=== PATIENT | male | born 1950 | race Caucasian/White ===

== ENCOUNTER 2019-01-08 15:20 | Emergency (ER) | payer MEDICARE, MEDICAID ==
[~2019-01-08] VITALS: Ht 188 cm; Wt 122.5 kg
--- OUTSIDE RECORDS SUMMARY | 2019-01-08 15:25 | XMS REPORT | Continuity of Care Document ---
Author Author [facility] Organization [facility] Address Unknown Phone Unavailable Allergies Active Description Code Type Severity Reaction Onset Reported/Identified Relationship to Patient Clinical Status Yes IVP DYES MILD OTHER Yes NO KNOWN DRUG ALLERGIES UNKNOWN NO KNOWN DRUG ALLERG Medications Medication Packaging Start Date Stop Date Route Dosage Sig DEXAMETHASONE VIAL INJ 4 MG/CC (DECADRON VIAL) MG 09/04/2018 09/04/2018 ONCE&2044 BACLOFEN TAB 10 MG (LIORESAL) MG 09/04/2018 ONCE&2044 Methylprednisolone inj susp 80mg (DEPO-Medrol) MG 09/04/2018 09/04/2018 ONCE&2044 TRAMADOL PAIN PACK TAB 50 MG (ULTRAM PAIN PACK) MG 09/04/2018 09/04/2018 ONCE&2130 Problems Date Dx Coded Attending Type Code Diagnosis Diagnosed By 05/03/2014 STU AL MD Ot 327.23 05/03/2014 STU AL MD Ot 799.02 07/07/2017 Nayely Humphrey 729.1 MYALGIA AND MYOSITIS, UNSPECIFIED 07/07/2017 Nayely Humphrey M79.1 MYALGIA 07/07/2017 Nayely Humphrey 715.94 OSTEOARTHROSIS, UNSPECIFIED WHETHER GENERALIZED OR LOCALIZED, INVOLVING HAND 07/07/2017 Nayely Humphrey 729.1 MYALGIA AND MYOSITIS, UNSPECIFIED 07/07/2017 Nayely Humphrey M19.049 PRIMARY OSTEOARTHRITIS, UNSPECIFIED HAND 07/07/2017 Nayely Humphrey M79.1 MYALGIA 07/07/2017 Nayely Humphrey 715.94 OSTEOARTHROSIS, UNSPECIFIED WHETHER GENERALIZED OR LOCALIZED, INVOLVING HAND 07/07/2017 Nayely Humphrey 729.1 MYALGIA AND MYOSITIS, UNSPECIFIED 07/07/2017 Nayely Humphrey M19.049 PRIMARY OSTEOARTHRITIS, UNSPECIFIED HAND 07/07/2017 Kam, Nayely W M79.1 MYALGIA 09/02/2018 Kam, Nayely W 724.2 LUMBAGO 09/02/2018 Kam, Nayely W M54.5 LOW BACK PAIN 09/02/2018 Kam, Nayely W 724.2 LUMBAGO 09/02/2018 Kam, Nayely W M54.5 LOW BACK PAIN 09/04/2018 BaldwinAbigail A A 724.6 DISORDERS OF SACRUM 09/04/2018 Denny Abigail A A M53.2X8 SPINAL INSTABILITIES, SACRAL AND SACROCOCCYGEAL REGION 09/06/2018 [facility], Nayely W 724.2 LUMBAGO 09/06/2018 Kam, Nayely W M54.5 LOW BACK PAIN 09/06/2018 Kam, Nayely W 724.2 LUMBAGO 09/06/2018 Kam, Nayely W M54.5 LOW BACK PAIN 10/26/2018 STORM CHRIS W 250.00 DIABETES MELLITUS WITHOUT MENTION OF COMPLICATION, TYPE II OR UNSPECIFIED TYPE, NOT STATED UNCONTROLLED 10/26/2018 STORM CHRIS W E11.9 TYPE 2 DIABETES MELLITUS WITHOUT COMPLICATIONS 11/16/2018 [facility], Nayely W 274.10 GOUTY NEPHROPATHY, UNSPECIFIED 11/16/2018 Kam, Nayely W 585.9 CHRONIC KIDNEY DISEASE, UNSPECIFIED 11/16/2018 Kam, Nayely W 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 Results Test Result Range Uric Acid - 07/07/17 15:11 Uric Acid 8.1 mg/dL 2.6-7.2 BMP - 05/15/18 16:10 Anion Gap 19 6-14 BUN 33 mg/dL 5-25 Calcium 9.7 mg/dL 8.3-10.4 Chloride 101 mmol/L 95-114 CO2 23 mEq/L 22-33 Creat 1.75 mg/dL 0.50-1.50 eGFR 39 mL/min/1.73m2 >59 Glucose 134 mg/dL 70-110 Osmo 296 280-295 Potassium 4.0 mmol/L 3.5-5.3 Sodium 139 mmol/L 134-148 Uric Acid - 11/16/18 15:44 Uric Acid 7.3 mg/dL 2.6-7.2 Encounters ACCT No. Visit Date/Time Discharge Status Pt. Type Provider Facility Loc./Unit Complaint [id number] 05/02/2014 20:15:00 05/03/2014 06:30:00 DIS Outpatient SERVANDO SONI, STU [facility] [id number] 11/16/2018 15:40:00 11/16/2018 23:59:00 DIS Outpatient Nayely Humphrey [id number] 10/26/2018 14:31:00 10/26/2018 23:59:00 DIS Outpatient STORM CHRIS [id number] 09/14/2018 14:51:00 09/14/2018 23:59:00 DIS Outpatient Nayely Humphrey [id number] 09/06/2018 08:43:00 09/06/2018 23:59:00 DIS Outpatient Nayely Humphrey [id number] 09/04/2018 20:09:00 09/04/2018 21:35:00 DIS Outpatient [place], [facility] [id number] 09/02/2018 16:19:00 09/02/2018 23:59:00 DIS Outpatient Nayely Humphrey [id number] 07/27/2018 16:12:00 07/27/2018 23:59:00 DIS Outpatient Nayely Humphrey [id number] 05/15/2018 16:05:00 05/15/2018 23:59:00 DIS Outpatient Nayely Humphrey [id number] 01/07/2018 16:31:00 01/07/2018 23:59:00 DIS Outpatient Nayely Humphrey [id number] 11/17/2017 14:22:00 11/17/2017 23:59:00 DIS Outpatient Nayely Humphrey [id number] 10/10/2017 09:04:00 10/10/2017 23:59:00 DIS Outpatient BIENVENIDO MULTANI [id number] 07/07/2017 15:04:00 07/07/2017 23:59:00 DIS Outpatient Nayely Humphrey [id number] 01/04/2019 11:15:32 Document Registration [id number] 09/04/2018 20:49:27 Document Registration [id number] 12/12/2018 16:10:00 12/12/2018 23:59:59 [facility] Outpatient Nayely Humphrey [facility]
[2019-01-08 16:30] VITALS: BP 139/76
[2019-01-08 16:35] LABS: HEMATOCRIT 40 % (40-54); HEMOGLOBIN 13.6 G/DL (13.3-17.7); MEAN CORPUSCULAR HEMOGLOBIN 31 PG (25-34); MEAN CORPUSCULAR HGB CONC 34 G/DL (32-36); MEAN CORPUSCULAR VOLUME 92 FL (80-99); PLATELET COUNT 224 10^3/uL (130-400); RED CELL DISTRIBUTION WIDTH 12.7 % (10.0-14.5); WHITE BLOOD COUNT 10.6 10^3/uL (4.3-11.0)
[2019-01-08 16:36] LABS: BASOPHILS % (AUTO) 0 % (0-10); EOSINOPHILS % (AUTO) 0 % (0-10); LYMPHOCYTES % (AUTO) 11 % (12-44); MEAN PLATELET VOLUME 9.9 FL (7.4-10.4); NEUTROPHILS % (AUTO) 83 % (42-75)
[2019-01-08 16:37] LABS: LYMPHOCYTES # (AUTO) 1.1 X 10^3 (1.0-4.0); MONOCYTES # (AUTO) 0.6 X 10^3 (0.0-1.0); MONOCYTES % (AUTO) 6 % (0-12); NEUTROPHILS # (AUTO) 8.8 X 10^3 (1.8-7.8)
[2019-01-08 17:00] VITALS: BP 159/72
--- NOTE | 2019-01-08 17:11 | ED Cardiac General ---
History of Present Illness General Chief Complaint: Cardiac/General Problems Stated Complaint: HIGH BLOOD PRESSURE, DIZZY Nursing Triage Note: PT REPORT HIS BLOOD PRESSURE AT HOME AT ABOUT 1500 WAS 200/[address] 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 Source: patient History of Present Illness Date Seen by Provider: Jan 08, 2019 Time Seen by Provider: 17:10 Initial Comments Patient is a 68-year-old male with history of hypertension type 2 diabetes who presents with dizziness lightheadedness and elevated blood pressure after workout session. Symptoms lasted approximately 10-15 minutes and resolved. Blood pressure remained elevated with a systolic blood pressure greater than 240 and diastolic greater than 100. Patient contacted his lei maker, Dr. Khan who practices [facility]. The patient was instructed to come to the emergency department. Patient denies history of coronary disease, valvular heart disease or cardiomyopathy. States he recently increased his workout regimen, but can't discuss this with the lei maker beforehand. Patient states his last cardiac stress test was 8 years ago Timing/Duration: 2-3 days Severity: moderate Activities at Onset: activity Prior CP/Workup: no prior chest pain, no prior cardiac workup Allergies and Home Medications Patient Home Medication List Home Medication List Reviewed: Yes Review of Systems Review of Systems Constitutional: see HPI Respiratory: See HPI Cardiovascular: See HPI Gastrointestinal: See HPI Genitourinary: See HPI Musculoskeletal: see HPI Skin: see HPI Psychiatric/Neurological: See HPI Endocrine: See HPI Past Ahzouqn-[place]qu[place]-Ibnapx Hx Past Med/Social Hx: Reviewed Nursing Past Med/Soc Hx Patient Social History Alcohol Use: Denies Use Recreational Drug Use: No Smoking Status: Current Everyday Smoker Type Used: Electronic/Vapor 2nd Hand Smoke Exposure: No Recent Foreign Travel: No Contact w/Someone Who Travel: No Recent Infectious Disease Expo: No Recent Hopitalizations: No Physical Abuse: No Sexual Abuse: No Mistreated: No Fear: No Seasonal Allergies Seasonal Allergies: No Past Medical History Surgeries: Yes Appendectomy, Gallbladder, Orthopedic, Tonsillectomy Respiratory: No Cardiac: Yes Hypertension Neurological: Yes Neuropathy Genitourinary: No Gastrointestinal: No Musculoskeletal: Yes Back Injury, Chronic Back Pain Endocrine: Yes Diabetes, Non-Insulin dep HEENT: No Psychosocial: No Integumentary: No Physical Exam Vital Signs Vital Signs - First Documented 01/08/19 16:17 Temp 98.1 Pulse 81 Resp 16 B/P (MAP) 181/79 (113) Capillary Refill : Less Than 3 Seconds Height, Weight, BMI Height: 6'2.00" Weight: 270lbs. oz. 122.119668hg; BMI Method:Stated General Appearance: No Apparent Distress HEENT: PERRL/EOMI Neck: Full Range of Motion, Normal Inspection, Non Tender Respiratory: Chest Non Tender, Lungs Clear Cardiovascular: Regular Rate, Rhythm, No Edema Gastrointestinal: Normal Bowel Sounds, Non Tender Progress/Results/Core Measures Results/Orders Lab Results Laboratory Tests Test 01/08/19 16:27 Range/Units White Blood Count 10.6 4.3-11.0 10^3/uL Red Blood Count 4.38 4.35-5.85 10^6/uL Hemoglobin 13.6 13.3-17.7 G/DL Hematocrit 40 40-54 % Mean Corpuscular Volume 92 80-99 FL Mean Corpuscular Hemoglobin 31 25-34 PG Mean Corpuscular Hemoglobin Concent 34 32-36 G/DL Red Cell Distribution Width 12.7 10.0-14.5 % Platelet Count 224 130-400 10^3/uL Mean Platelet Volume 9.9 7.4-10.4 FL Neutrophils (%) (Auto) 83 H 42-75 % Lymphocytes (%) (Auto) 11 L 12-44 % Monocytes (%) (Auto) 6 0-12 % Eosinophils (%) (Auto) 0 0-10 % Basophils (%) (Auto) 0 0-10 % Neutrophils # (Auto) 8.8 H 1.8-7.8 X 10^3 Lymphocytes # (Auto) 1.1 1.0-4.0 X 10^3 Monocytes # (Auto) 0.6 0.0-1.0 X 10^3 Eosinophils # (Auto) 0.0 0.0-0.3 10^3/uL Basophils # (Auto) 0.0 0.0-0.1 10^3/uL Sodium Level 139 135-145 MMOL/L Potassium Level 4.1 3.6-5.0 MMOL/L Chloride Level 99 98-107 MMOL/L Carbon Dioxide Level 27 21-32 MMOL/L Anion Gap 13 5-14 MMOL/L Blood Urea Nitrogen 26 H 7-18 MG/DL Creatinine 1.17 0.60-1.30 MG/DL Estimat Glomerular Filtration Rate > 60 BUN/Creatinine Ratio 22 Glucose Level 117 H 70-105 MG/DL Calcium Level 9.9 8.5-10.1 MG/DL Corrected Calcium 9.7 8.5-10.1 MG/DL Total Bilirubin 0.2 0.1-1.0 MG/DL Aspartate Amino Transf (AST/SGOT) 26 5-34 U/L Alanine Aminotransferase (ALT/SGPT) 16 0-55 U/L Alkaline Phosphatase 99 40-136 U/L Troponin T 18 H <=15 NG/L Pro-B-Type Natriuretic Peptide 96.1 H <75.0 PG/ML Total Protein 7.3 6.4-8.2 GM/DL Albumin 4.3 3.2-4.5 GM/DL My Orders Orders - OSIRIS DO DO Cbc With Automated Diff (01/08/19 16:03) Comprehensive Metabolic Panel (01/08/19 16:03) Troponin T (01/08/19 16:03) Ekg Tracing (01/08/19 16:03) Probnp Fs (01/08/19 16:03) Vital Signs/I&O 01/08/19 16:17 Temp 98.1 Pulse 81 Resp 16 B/P (MAP) 181/79 (113) Blood Pressure Mean: 113 Departure Impression Primary Impression: Accelerated hypertension Additional Impressions: Dizziness Elevated troponin Disposition: XFER SHT-TRM HOSP Condition: Stable Admissions Decision to Admit Reason: Admit from ER (Trauma) Decision to Admit/Date: Jan 08, 2019 Time/Decision to Admit Time: 17:31 Transfer Time Spoke to Accepting Phy: 17:31 (Dr. Maloney) Method of Transfer: EMS Departure-Patient Inst. Referrals: IVETTE SOLANO MD (PCP/Family) Primary Care Physician OSIRIS DO DO Jan 08, 2019 17:10
[2019-01-08 17:13] LABS: ALANINE AMINOTRANSFERASE 16 U/L (0-55); ALBUMIN 4.3 GM/DL (3.2-4.5); ALKALINE PHOSPHATASE 99 U/L (40-136); BILIRUBIN,TOTAL 0.2 MG/DL (0.1-1.0); BUN/CREATININE RATIO 22; CALCIUM 9.9 MG/DL (8.5-10.1); CARBON DIOXIDE 27 MMOL/L (21-32); CHLORIDE 99 MMOL/L (98-107); CREATININE SERUM 1.17 MG/DL (0.60-1.30); GFR ESTIMATED > 60; GLUCOSE 117 MG/DL (70-105); POTASSIUM 4.1 MMOL/L (3.6-5.0); SODIUM 139 MMOL/L (135-145); TOTAL PROTEIN 7.3 GM/DL (6.4-8.2)
[2019-01-08 17:30] VITALS: BP 158/75
--- NOTE | 2019-01-08 19:10 | NUR ---
assumed care of this patient at this time. Patient is resting quietly in room awaiting transfer to [facility]. Vital signs are stable will cotinue to monitor.
--- NOTE | 2019-01-08 20:32 | NUR ---
report given to Deb EGAN at [facility]. Patient remains stable at this time. will continue to monitor
[2019-01-08 23:00] VITALS: BP 158/75
== END 2019-01-08 23:00 | disposition short-term general hospital (02) ==
LOC: EDUNIT# 15:20 → ER FS 15:22
DX: I10 Essential (primary) hypertension (principal); R42 Dizziness and giddiness; R79.89 Other specified abnormal findings of blood chemistry; E11.9 Type 2 diabetes mellitus without complications; F17.290 Nicotine dependence, other tobacco product, uncomplicated; Z90.89 Acquired absence of other organs
CPT/HCPCS: 36415; 80053; 82962; 83880; 84484; 85025

== ENCOUNTER → 2019-03-17 | Outpatient (CLI) | payer MEDICARE, MEDICAID ==
[2019-03-17 11:57] LABS: CHOLESTEROL 153 MG/DL (< 200); HDL CHOLESTEROL 31 MG/DL (40-60); TRIGLYCERIDES 167 MG/DL (<150); VLDL CHOLESTEROL 33 MG/DL (5-40)
== END ==
LOC: LAB FS 07:17
PROVIDERS: ATTEND Family Medicine
DX: E78.5 Hyperlipidemia, unspecified (principal); E11.9 Type 2 diabetes mellitus without complications
CPT/HCPCS: 36415; 80061; 82043; 83036

== ENCOUNTER 2019-06-10 13:00 | Emergency (ER) | payer MEDICARE, MEDICAID ==
[~2019-06-10] VITALS: Ht 188 cm; Wt 115.7 kg
--- NOTE | 2019-06-10 13:21 | ED Chest Pain ---
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 REPRODUCABLE AND HURTS TO PALAPATE ALL ACROSS HIS CHEST. REPORTS HE HAS HAD THIS TYPE OF PAIN IN THE PAST. ACCOMPANIED BY FEELING CLAMMY. BS WAS 73 PT IS ALOS A DIABETIC AND WAS EATING AT THE TIME. Nursing Sepsis Screen: No Definite Risk Source: patient Exam Limitations: no limitations History of Present Illness Date Seen by Provider: Jun 10, 2019 Time Seen by Provider: 13:05 Initial Comments The patient is a pleasant 69-year-old male who arrives via EMS for evaluation of chest pain which started approximately 30 minutes prior. The patient states he is eating when the pain began. He states he's had similar pain several times in the past. He states the pain goes across his entire chest and does not radiate. He states that his chest is sore to palpation. He is alert and oriented 4, calm, and appears to be in no distress at this time. He states that he takes an aspirin every day in the morning and took one earlier today. Denies fevers or chills, nausea or vomiting, diaphoresis, back pain, productive cough, he moptysis, shortness of breath, palpitations, or syncope. 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 Associated Symptoms: denies symptoms Allergies and Home Medications Patient Home Medication List Home Medication List Reviewed: Yes Review of Systems Review of Systems Constitutional: no symptoms reported EENTM: No Symptoms Reported Respiratory: No Symptoms Reported Cardiovascular: Chest Pain Gastrointestinal: No Symptoms Reported Genitourinary: No Symptoms Reported Musculoskeletal: no symptoms reported Skin: no symptoms reported Psychiatric/Neurological: No Symptoms Reported Endocrine: No Symptoms Reported Hematologic/Lymphatic: No Symptoms Reported All Other Systems Reviewed Negative Unless Noted: Yes Past Trhzgek-Nrkuwc-Oqttoo Hx Past Med/Social Hx: Reviewed Nursing Past Med/Soc Hx Patient Social History Alcohol Use: Denies Use Recreational Drug Use: No Type Used: Electronic/Vapor 2nd Hand Smoke Exposure: No Recent Foreign Travel: No Contact w/Someone Who Travel: No Recent Infectious Disease Expo: No Recent Hopitalizations: No Physical Abuse: No Sexual Abuse: No Mistreated: No Fear: No Seasonal Allergies Seasonal Allergies: No Past Medical History Surgeries: Yes Appendectomy, Gallbladder, Orthopedic, Tonsillectomy Respiratory: No Cardiac: Yes Hypertension Neurological: Yes Neuropathy Genitourinary: No Gastrointestinal: No Musculoskeletal: Yes Back Injury, Chronic Back Pain Endocrine: Yes Diabetes, Non-Insulin dep HEENT: No Psychosocial: No Integumentary: No Physical Exam Vital Signs Vital Signs - First Documented 06/10/19 13:07 Temp 97.2 Pulse 75 Resp 18 B/P (MAP) 150/70 (96) O2 Delivery Room Air Capillary Refill : Less Than 3 Seconds Height, Weight, BMI Height: 6'2.00" Weight: 255lbs. oz. 115.188385jk; BMI Method:Stated General Appearance: No Apparent Distress, WD/WN HEENT: PERRL/EOMI, Normal ENT Inspection Neck: Full Range of Motion, Normal Inspection Respiratory: Chest Non Tender, Normal Breath Sounds Cardiovascular: Regular Rate, Rhythm, No Edema, No JVD, Other (chest wall is tender to palpation and reproduces patient's pain complaint) Gastrointestinal: Normal Bowel Sounds, No Pulsatile Mass, Non Tender, Soft Extremity: Normal Capillary Refill, Normal Inspection, Non Tender, No Calf Tenderness Neurologic/Psychiatric: Alert, Oriented x3, No Motor/Sensory Deficits, Normal Mood/Affect, 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 Norm as Tested Skin: Normal Color, Warm/Dry Lymphatic: No Adenopathy Progress/Results/Core Measures Results/Orders Lab Results Laboratory Tests Test 06/10/19 13:17 06/10/19 15:03 Range/Units White Blood Count 4.3 4.3-11.0 10^3/uL Red Blood Count 3.83 L 4.35-5.85 10^6/uL Hemoglobin 12.1 L 13.3-17.7 G/DL Hematocrit 37 L 40-54 % Mean Corpuscular Volume 96 80-99 FL Mean Corpuscular Hemoglobin 32 25-34 PG Mean Corpuscular Hemoglobin Concent 33 32-36 G/DL Red Cell Distribution Width 12.6 10.0-14.5 % Platelet Count 207 130-400 10^3/uL Mean Platelet Volume 10.1 7.4-10.4 FL Neutrophils (%) (Auto) 68 42-75 % Lymphocytes (%) (Auto) 19 12-44 % Monocytes (%) (Auto) 9 0-12 % Eosinophils (%) (Auto) 4 0-10 % Basophils (%) (Auto) 0 0-10 % Neutrophils # (Auto) 2.9 1.8-7.8 X 10^3 Lymphocytes # (Auto) 0.8 L 1.0-4.0 X 10^3 Monocytes # (Auto) 0.4 0.0-1.0 X 10^3 Eosinophils # (Auto) 0.2 0.0-0.3 10^3/uL Basophils # (Auto) 0.0 0.0-0.1 10^3/uL Sodium Level 143 135-145 MMOL/L Potassium Level 3.6 3.6-5.0 MMOL/L Chloride Level 101 98-107 MMOL/L Carbon Dioxide Level 27 21-32 MMOL/L Anion Gap 15 H 5-14 MMOL/L Blood Urea Nitrogen 29 H 7-18 MG/DL Creatinine 1.47 H 0.60-1.30 MG/DL Estimat Glomerular Filtration Rate 47 BUN/Creatinine Ratio 20 Glucose Level 88 70-105 MG/DL Calcium Level 9.2 8.5-10.1 MG/DL Corrected Calcium 9.2 8.5-10.1 MG/DL Magnesium Level 2.4 1.6-2.4 MG/DL Total Bilirubin 0.2 0.1-1.0 MG/DL Aspartate Amino Transf (AST/SGOT) 25 5-34 U/L Alanine Aminotransferase (ALT/SGPT) 17 0-55 U/L Alkaline Phosphatase 96 40-136 U/L Creatine Kinase MB 4.6 <6.6 NG/ML Troponin I < 0.30 < 0.30 <0.30 NG/ML Pro-B-Type Natriuretic Peptide 117.7 H <75.0 PG/ML Total Protein 6.4 6.4-8.2 GM/DL Albumin 4.0 3.2-4.5 GM/DL Amylase Level 45 25-125 U/L Lipase 49 8-78 U/L My Orders Orders - ROYAL WAGGONER DO Cbc With Automated Diff (06/10/19 13:04) Magnesium (06/10/19 13:04) Chest 1 View Ap/Pa Only (06/10/19 13:04) Ekg Tracing (06/10/19 13:04) Comprehensive Metabolic Panel (06/10/19 13:04) O2 (06/10/19 13:04) Monitor-Rhythm Ecg Trace Only (06/10/19 13:04) Ed Iv/Invasive Line Start (06/10/19 13:04) Lipase (06/10/19 13:04) Amylase (06/10/19 13:04) Troponin I (06/10/19 13:04) Probnp Fs (06/10/19 13:04) Creatine Kinase Mb (06/10/19 13:17) Troponin I (06/10/19 15:00) Vital Signs/I&O 06/10/19 13:07 Temp 97.2 Pulse 75 Resp 18 B/P (MAP) 150/70 (96) O2 Delivery Room Air Blood Pressure Mean: 96 Progress Progress Note : Progress Note @1550 - patient and updated on laboratory results. The patient is asymptomatic and is asking to be discharged home. He is slightly elevated renal function may be dehydrated but otherwise his laboratory findings are unremarkable. Advised the patient to follow up with his PCP in the next 2-3 days and to return to the emergency Department immediately for new or worsening symptoms. He expresses verbal understanding and agreement with the plan is stable for discharge at this time. EKG : Comment @1307 - Normal sinus rhythm, rate of 77, normal axis, no acute ischemic findings noted, no STEMI, reviewed and interpreted by myself Departure Impression Primary Impression: Chest wall pain Disposition: 01 HOME, SELF-CARE Condition: Stable Departure-Patient Inst. Decision time for Depature: 15:53 Referrals: IVETTE SOLANO MD (PCP/Family) Primary Care Physician Patient Instructions: Chest Pain, Costochondritis, Chest Pain That Is Not Caused by the Heart (DC) Add. Discharge Instructions: Follow-up with her PCP and/or transportation driver the next 1-2 days. Return to the emergency department immediately for difficult breathing, chest pain, new or worsening symptoms. ROYAL WAGGONER DO Jun 10, 2019 13:21
--- NOTE | 2019-06-10 13:31 | Diagnostic Imaging Report ---
INDICATION: Chest pain. Time of exam 1:03 PM No prior studies are available for comparison. The heart size is normal. The pulmonary vascularity is unremarkable. The lungs are clear. No infiltrate, effusion or pneumothorax is detected. Impression: No acute cardiopulmonary process is detected. Dictated by: Dictated on workstation # [id number]
[2019-06-10 13:36] LABS: HEMATOCRIT 37 % (40-54); HEMOGLOBIN 12.1 G/DL (13.3-17.7); MEAN CORPUSCULAR HEMOGLOBIN 32 PG (25-34); MEAN CORPUSCULAR HGB CONC 33 G/DL (32-36); MEAN CORPUSCULAR VOLUME 96 FL (80-99); WHITE BLOOD COUNT 4.3 10^3/uL (4.3-11.0)
[2019-06-10 13:37] LABS: BASOPHILS % (AUTO) 0 % (0-10); EOSINOPHILS # (AUTO) 0.2 10^3/uL (0.0-0.3); EOSINOPHILS % (AUTO) 4 % (0-10); LYMPHOCYTES # (AUTO) 0.8 X 10^3 (1.0-4.0); LYMPHOCYTES % (AUTO) 19 % (12-44); MEAN PLATELET VOLUME 10.1 FL (7.4-10.4); MONOCYTES # (AUTO) 0.4 X 10^3 (0.0-1.0); MONOCYTES % (AUTO) 9 % (0-12); NEUTROPHILS # (AUTO) 2.9 X 10^3 (1.8-7.8); NEUTROPHILS % (AUTO) 68 % (42-75); PLATELET COUNT 207 10^3/uL (130-400); RED CELL DISTRIBUTION WIDTH 12.6 % (10.0-14.5)
[2019-06-10 13:43] LABS: POTASSIUM 3.6 MMOL/L (3.6-5.0)
[2019-06-10 13:44] LABS: BILIRUBIN,TOTAL 0.2 MG/DL (0.1-1.0); CALCIUM 9.2 MG/DL (8.5-10.1); CREATININE SERUM 1.47 MG/DL (0.60-1.30); MAGNESIUM 2.4 MG/DL (1.6-2.4); TOTAL PROTEIN 6.4 GM/DL (6.4-8.2)
[2019-06-10 16:00] VITALS: BP 122/82
== END 2019-06-10 16:00 | disposition home or self-care (01) ==
LOC: EDUNIT# 13:00 → ER FS 13:02
DX: R07.89 Other chest pain (principal); E11.42 Type 2 diabetes mellitus with diabetic polyneuropathy; I10 Essential (primary) hypertension; Z79.82 Long term (current) use of aspirin; Z90.49 Acquired absence of other specified parts of digestive tract; Z90.89 Acquired absence of other organs
CPT/HCPCS: 36415; 71045; 80053; 82150; 82553; 83690; 83735; 83880; 84484; 85025; 93005; 93041

== ENCOUNTER 2019-12-29 12:16 | Outpatient (CLI) | payer MEDICARE, MEDICAID ==
[~2019-12-29] VITALS: Ht 187 cm; Wt 120.0 kg
[2019-12-29] MEDS ORDERED: POTA10TA36 PO (14:43)
[2019-12-29] MEDS ORDERED: FEXO-46 PO (14:43)
[2019-12-29] MEDS ORDERED: GLIM4TAB5 PO (14:43)
[2019-12-29] MEDS ORDERED: LINA5TAB PO (14:43)
[2019-12-29] MEDS ORDERED: OMEP20CA18 PO (14:43)
[2019-12-29] MEDS ORDERED: GABA-490 PO (14:43)
[2019-12-29] MEDS ORDERED: FURO20TA4 PO (14:43)
[2019-12-29] MEDS ORDERED: RANI-609 PO (14:43)
[2019-12-29] MEDS ORDERED: NF-VITD400 PO (14:43)
[2019-12-29] MEDS ORDERED: ESCI10TA55 PO (14:43)
[2019-12-29] MEDS ORDERED: VERA360C2 PO (14:43)
[2019-12-29] MEDS ORDERED: PRAV40TA2 PO (14:43)
[2019-12-29] MEDS ORDERED: LOSA50TA63 PO (14:43)
[2019-12-29] MEDS ORDERED: OMG1KC PO (14:43)
[2019-12-29] MEDS ORDERED: CYAN50008 PO (14:43)
[2019-12-29] MEDS ORDERED: HYDR-4226 PO (14:43)
[2019-12-29] MEDS ORDERED: ASPI-586 PO (14:43)
[2019-12-29] MEDS ORDERED: ASCO500C17 PO (14:43)
== END 2019-12-29 15:16 | disposition home or self-care (01) ==
LOC: PREOP 12:16
PROVIDERS: ATTEND Orthopaedic Surgery
DX: Z01.818 Encounter for other preprocedural examination (principal)

== ENCOUNTER → 2020-01-15 | Outpatient (CLI) | payer MEDICARE, MEDICAID ==
[~2020-01-15] MED LIST: ASCO500C17 PO; ASPI-586 PO; CYAN50008 PO; ESCI10TA55 PO; FEXO-46 PO; FURO20TA4 PO; GABA-490 PO; GLIM4TAB5 PO; HYDR-4226 PO; LINA5TAB PO; LOSA50TA63 PO; NF-VITD400 PO; OMEP20CA18 PO; OMG1KC PO; POTA10TA36 PO; PRAV40TA2 PO; RANI-609 PO; VERA360C2 PO
[2020-01-15 11:21] LABS: BILIRUBIN,TOTAL 0.3 MG/DL (0.1-1.0); CALCIUM 9.8 MG/DL (8.5-10.1); CREATININE SERUM 1.35 MG/DL (0.60-1.30); POTASSIUM 4.7 MMOL/L (3.6-5.0); TOTAL PROTEIN 7.3 GM/DL (6.4-8.2)
[2020-01-15 11:22] LABS: ALBUMIN 4.1 GM/DL (3.2-4.5); HEMOGLOBIN 13.8 G/DL (13.3-17.7); MEAN PLATELET VOLUME 10.3 FL (7.4-10.4); RED CELL DISTRIBUTION WIDTH 12.3 % (10.0-14.5); WHITE BLOOD COUNT 4.5 10^3/uL (4.3-11.0)
[2020-01-15 14:56] LABS: CHOLESTEROL 171 MG/DL (< 200); HDL CHOLESTEROL 32 MG/DL (40-60); TRIGLYCERIDES 191 MG/DL (<150); VLDL CHOLESTEROL 38 MG/DL (5-40)
== END ==
LOC: LAB FS 09:13
PROVIDERS: ATTEND Family Medicine
DX: E11.22 Type 2 diabetes mellitus with diabetic chronic kidney disease (principal); I12.9 Hypertensive chronic kidney disease with stage 1 through stage 4 chronic kidney disease, or unspecified chronic kidney disease; N18.9 Chronic kidney disease, unspecified
CPT/HCPCS: 36415; 80053; 80061; 82043; 83036

== ENCOUNTER → 2020-01-15 | Outpatient (CLI) | payer MEDICARE, MEDICAID ==
[2020-01-15 11:23] LABS: POTASSIUM 4.8 MMOL/L (3.6-5.0)
[2020-01-15 11:24] LABS: ALBUMIN 4.1 GM/DL (3.2-4.5); BILIRUBIN,DIRECT 0.2 MG/DL (0.0-0.3); BILIRUBIN,INDIRECT 0.1 MG/DL; BILIRUBIN,TOTAL 0.3 MG/DL (0.1-1.0); CALCIUM 9.8 MG/DL (8.5-10.1); CREATININE SERUM 1.33 MG/DL (0.60-1.30); TOTAL PROTEIN 7.4 GM/DL (6.4-8.2)
[2020-01-15 11:25] LABS: BACTERIA,URINE NEGATIVE /HPF; BILIRUBIN,URINE NEGATIVE (NEGATIVE); CLARITY,URINE CLEAR; COLOR,URINE YELLOW; GLUCOSE, URINE (UA) NEGATIVE (NEGATIVE); KETONES,URINE NEGATIVE (NEGATIVE); LEUKOCYTE ESTERASE ,URINE NEGATIVE (NEGATIVE); NITRITE,URINE NEGATIVE (NEGATIVE); PH,URINE 6.5 (5-9); PROTEIN,URINE NEGATIVE (NEGATIVE); RBC,URINE 0-2 /HPF; SQUAMOUS EPITHELIAL CELL,UR 0-2 /HPF; WBC,URINE 0-2 /HPF
[2020-01-15 11:26] LABS: HEMOGLOBIN 13.8 G/DL (13.3-17.7); WHITE BLOOD COUNT 4.3 10^3/uL (4.3-11.0)
[2020-01-15 11:27] LABS: MEAN PLATELET VOLUME 10.3 FL (7.4-10.4); RED CELL DISTRIBUTION WIDTH 12.2 % (10.0-14.5)
[2020-01-15 14:49] LABS: CHOLESTEROL 171 MG/DL (< 200); HDL CHOLESTEROL 32 MG/DL (40-60); TRIGLYCERIDES 191 MG/DL (<150); VLDL CHOLESTEROL 38 MG/DL (5-40)
== END ==
LOC: LAB FS 09:11
PROVIDERS: ATTEND Urology
DX: N40.0 Benign prostatic hyperplasia without lower urinary tract symptoms (principal); Z79.899 Other long term (current) drug therapy
CPT/HCPCS: 36415; 80048; 80061; 80076; 81000; 84153; 84403; 85027

== ENCOUNTER → 2021-01-02 | Outpatient (CLI) | payer MEDICARE, MEDICAID ==
[~2021-01-02] MED LIST changes: +ESCI-2 PO; -ESCI10TA55 PO
--- NOTE | 2021-01-02 15:49 | Diagnostic Imaging Report ---
PROCEDURE: MRI lumbar spine. TECHNIQUE: Multiplanar, multisequence MRI of the lumbar spine was performed without contrast. INDICATION: Chronic low back pain. Surgery in 2018. COMPARISON: None. FINDINGS: The last well-formed disc space will be labeled L5-S1 for the purposes of this examination. There is grade 1 anterolisthesis at L4-L5. There is multilevel disc height loss throughout the lumbar spine, most severe at L1-L2. The conus terminates in appropriate position. Soft tissues about the lumbar spine demonstrate no acute abnormality. T12-L1: There is no significant disc bulge. There is no spinal canal stenosis. There is no foraminal stenosis. L1-L2: Diffuse disc bulge with facet arthropathy and moderate narrowing of the lateral recesses. No spinal canal stenosis. Marked bilateral foraminal stenosis. L2-L3: Diffuse disc bulge with facet arthropathy. No spinal canal stenosis. Moderate right and mild left foraminal stenosis. L3-L4: Diffuse disc bulge and facet arthropathy with ligamentous infolding. Mild spinal canal narrowing. Mild narrowing of the lateral recesses. Marked bilateral foraminal stenosis. L4-L5: Anterolisthesis, diffuse disc bulge, facet arthropathy with ligamentous infolding. Moderate spinal canal stenosis with effacement of the lateral recesses. Marked bilateral foraminal stenosis. L5-S1: Laminectomy noted at L5. Right paracentral disc protrusion superimposed on a diffuse disc bulge. The protrusion causes significant mass effect on the right S1 nerve root. There is complete effacement of the right lateral recess and mild narrowing of the spinal canal due to the disc protrusion. There is severe bilateral foraminal stenosis. IMPRESSION: 1. Large right paracentral disc protrusion at L5-S1, causing significant mass effect on the right S1 nerve root. 2. Multilevel degenerative changes in the lumbar spine. Moderate spinal canal stenosis at L4-L5 and multilevel marked bilateral foraminal stenosis. Dictated by: Dictated on workstation # [id number]
== END ==
LOC: RAD 13:59
PROVIDERS: ATTEND Physician Assistant
DX: M47.26 Other spondylosis with radiculopathy, lumbar region (principal); M51.27 Other intervertebral disc displacement, lumbosacral region; M48.061 Spinal stenosis, lumbar region without neurogenic claudication
CPT/HCPCS: 72148

== ENCOUNTER → 2021-03-26 | Outpatient (CLI) | payer MEDICARE, MEDICAID ==
[~2021-03-26] MED LIST changes: -CYAN50008 PO; +CYAN50009 PO
[2021-03-26 08:38] LABS: BACTERIA,URINE NEGATIVE /HPF; BILIRUBIN,URINE NEGATIVE (NEGATIVE); CLARITY,URINE CLEAR; COLOR,URINE YELLOW; GLUCOSE, URINE (UA) NEGATIVE (NEGATIVE); KETONES,URINE NEGATIVE (NEGATIVE); LEUKOCYTE ESTERASE ,URINE TRACE (NEGATIVE); NITRITE,URINE NEGATIVE (NEGATIVE); PROTEIN,URINE NEGATIVE (NEGATIVE); WBC,URINE 0-2 /HPF
[2021-03-26 08:39] LABS: HEMATOCRIT 40 % (40-54); HEMOGLOBIN 13.5 G/DL (13.3-17.7); MEAN CORPUSCULAR HEMOGLOBIN 32 PG (25-34); MEAN CORPUSCULAR HGB CONC 33 G/DL (32-36); MEAN CORPUSCULAR VOLUME 95 FL (80-99); MEAN PLATELET VOLUME 10.3 FL (7.4-10.4); PLATELET COUNT 277 10^3/uL (130-400); WHITE BLOOD COUNT 4.7 10^3/uL (4.3-11.0)
[2021-03-26 08:42] LABS: BILIRUBIN,TOTAL 0.3 MG/DL (0.1-1.0); CALCIUM 9.7 MG/DL (8.5-10.1); CREATININE SERUM 1.35 MG/DL (0.60-1.30); POTASSIUM 3.8 MMOL/L (3.6-5.0); TOTAL PROTEIN 7.1 GM/DL (6.4-8.2)
[2021-03-26 08:43] LABS: ALBUMIN 4.1 GM/DL (3.2-4.5)
== END ==
LOC: LAB FS 07:10
PROVIDERS: ATTEND Family Medicine
DX: E11.65 Type 2 diabetes mellitus with hyperglycemia (principal); I10 Essential (primary) hypertension
CPT/HCPCS: 36415; 80053; 80061; 81000; 82043; 83036; 84443; 85027

== ENCOUNTER → 2021-03-26 | Outpatient (CLI) | payer MEDICARE, MEDICAID | LOC: LAB FS 07:18 | PROVIDERS: ATTEND Urology | DX: N40.0 Benign prostatic hyperplasia without lower urinary tract symptoms (principal) | CPT/HCPCS: 36415; 84153 ==

== ENCOUNTER → 2021-04-05 | Outpatient (CLI) | payer MEDICARE, MEDICAID ==
[2021-04-05 09:54] LABS: CALCIUM 9.6 MG/DL (8.5-10.1); CREATININE SERUM 1.64 MG/DL (0.60-1.30); POTASSIUM 4.7 MMOL/L (3.6-5.0)
== END ==
LOC: LAB FS 08:34
PROVIDERS: ATTEND Family Medicine
DX: E11.65 Type 2 diabetes mellitus with hyperglycemia (principal); R94.4 Abnormal results of kidney function studies
CPT/HCPCS: 36415; 80048

== ENCOUNTER → 2021-04-12 | Outpatient (CLI) | payer MEDICARE, MEDICAID ==
[2021-04-12 13:40] LABS: CALCIUM 9.3 MG/DL (8.5-10.1); CREATININE SERUM 1.4 MG/DL (0.60-1.30); POTASSIUM 4.2 MMOL/L (3.6-5.0)
== END ==
LOC: LAB FS 12:57
PROVIDERS: ATTEND Family Medicine
DX: R94.4 Abnormal results of kidney function studies (principal)
CPT/HCPCS: 36415; 80048

== ENCOUNTER → 2021-05-21 | Outpatient (CLI) | payer MEDICARE, MEDICAID ==
[2021-05-21 11:01] LABS: CALCIUM 9.4 MG/DL (8.5-10.1); CREATININE SERUM 1.43 MG/DL (0.60-1.30)
== END ==
LOC: LAB FS 09:50
PROVIDERS: ATTEND Family Medicine
DX: R94.4 Abnormal results of kidney function studies (principal)
CPT/HCPCS: 36415; 80048

== ENCOUNTER → 2022-05-08 | Outpatient (CLI) | payer MEDICARE, MEDICAID ==
[~2022-05-08] MED LIST changes: -FEXO-46 PO; +NF-ALLE180 PO; -POTA10TA36 PO; +POTA10TA37 PO
[2022-05-08 07:49] LABS: HEMATOCRIT 41 % (40-54); HEMOGLOBIN 13.6 g/dL (13.3-17.7); MEAN CORPUSCULAR HEMOGLOBIN 31 pg (25-34); MEAN CORPUSCULAR HGB CONC 34 g/dL (32-36); MEAN CORPUSCULAR VOLUME 93 fL (80-99); MEAN PLATELET VOLUME 9.8 fL (9.0-12.2); PLATELET COUNT 233 10^3/uL (130-400); WHITE BLOOD COUNT 4.5 10^3/uL (4.3-11.0)
[2022-05-08 07:52] LABS: BILIRUBIN,URINE NEGATIVE (NEGATIVE); CLARITY,URINE CLEAR; COLOR,URINE YELLOW; GLUCOSE, URINE (UA) 3+ (NEGATIVE); KETONES,URINE NEGATIVE (NEGATIVE); LEUKOCYTE ESTERASE ,URINE NEGATIVE (NEGATIVE); NITRITE,URINE NEGATIVE (NEGATIVE); PROTEIN,URINE NEGATIVE (NEGATIVE)
[2022-05-08 08:06] LABS: BACTERIA,URINE NEGATIVE /HPF; SQUAMOUS EPITHELIAL CELL,UR RARE /HPF; WBC,URINE 0-2 /HPF
[2022-05-08 08:22] LABS: ALBUMIN 4.2 GM/DL (3.2-4.5); BILIRUBIN,TOTAL 0.3 MG/DL (0.1-1.0); CALCIUM 9.4 MG/DL (8.5-10.1); CREATININE SERUM 1.62 MG/DL (0.60-1.30); POTASSIUM 4.1 MMOL/L (3.6-5.0)
== END ==
LOC: LAB FS 07:07
PROVIDERS: ATTEND Family Medicine
DX: I12.9 Hypertensive chronic kidney disease with stage 1 through stage 4 chronic kidney disease, or unspecified chronic kidney disease (principal); E11.65 Type 2 diabetes mellitus with hyperglycemia; N18.9 Chronic kidney disease, unspecified; E55.9 Vitamin D deficiency, unspecified
CPT/HCPCS: 36415; 80053; 80061; 81000; 82306; 83036; 84443; 85027

== ENCOUNTER → 2022-07-03 | Outpatient (CLI) | payer OTHER, MEDICAID ==
[~2022-07-03] MED LIST changes: +POTA-177 PO; -POTA10TA37 PO
[2022-07-03 09:21] LABS: HEMOGLOBIN 13.8 g/dL (13.3-17.7)
[2022-07-03 10:26] LABS: CALCIUM 9.5 MG/DL (8.5-10.1); CREATININE SERUM 1.77 MG/DL (0.60-1.30); POTASSIUM 4.2 MMOL/L (3.6-5.0)
[2022-07-03 14:32] LABS: PHOSPHORUS 3.4 MG/DL (2.3-4.7)
== END ==
LOC: LAB FS 08:58
PROVIDERS: ATTEND Internal Medicine Nephrology
DX: N18.31 Chronic kidney disease, stage 3a (principal)
CPT/HCPCS: 36415; 80048; 83970; 84100; 85014; 85018

== ENCOUNTER → 2022-10-19 | Outpatient (CLI) | payer OTHER, MEDICAID ==
[2022-10-19 08:35] LABS: HEMATOCRIT 44 % (40-54); HEMOGLOBIN 14.8 g/dL (13.3-17.7); MEAN CORPUSCULAR HEMOGLOBIN 31 pg (25-34); MEAN CORPUSCULAR HGB CONC 34 g/dL (32-36); MEAN CORPUSCULAR VOLUME 92 fL (80-99); MEAN PLATELET VOLUME 9.6 fL (9.0-12.2); PLATELET COUNT 257 10^3/uL (130-400); WHITE BLOOD COUNT 5.8 10^3/uL (4.3-11.0)
[2022-10-19 08:53] LABS: ALBUMIN 4.3 GM/DL (3.2-4.5); BILIRUBIN,TOTAL 0.5 MG/DL (0.1-1.0); CALCIUM 9.9 MG/DL (8.5-10.1); CREATININE SERUM 1.61 MG/DL (0.60-1.30); POTASSIUM 4.4 MMOL/L (3.6-5.0); TOTAL PROTEIN 7.6 GM/DL (6.4-8.2)
== END ==
LOC: LAB 08:09
PROVIDERS: ATTEND Family Medicine
DX: E11.9 Type 2 diabetes mellitus without complications (principal); I12.9 Hypertensive chronic kidney disease with stage 1 through stage 4 chronic kidney disease, or unspecified chronic kidney disease; N18.9 Chronic kidney disease, unspecified
CPT/HCPCS: 36415; 80053; 83036; 85027

== ENCOUNTER → 2023-03-31 | Outpatient (CLI) | payer MEDICARE, MEDICAID ==
[2023-03-31 08:35] LABS: BILIRUBIN,URINE NEGATIVE (NEGATIVE); CLARITY,URINE CLEAR; COLOR,URINE YELLOW; GLUCOSE, URINE (UA) 3+ (NEGATIVE); KETONES,URINE NEGATIVE (NEGATIVE); LEUKOCYTE ESTERASE ,URINE NEGATIVE (NEGATIVE); NITRITE,URINE NEGATIVE (NEGATIVE); PROTEIN,URINE NEGATIVE (NEGATIVE)
[2023-03-31 08:41] LABS: HEMATOCRIT 42 % (40-54); HEMOGLOBIN 14.1 g/dL (13.3-17.7); MEAN CORPUSCULAR HEMOGLOBIN 31 pg (25-34); MEAN CORPUSCULAR HGB CONC 34 g/dL (32-36); MEAN CORPUSCULAR VOLUME 91 fL (80-99); PLATELET COUNT 243 10^3/uL (130-400); WHITE BLOOD COUNT 4.3 10^3/uL (4.3-11.0)
[2023-03-31 09:04] LABS: BACTERIA,URINE NEGATIVE /HPF; SQUAMOUS EPITHELIAL CELL,UR RARE /HPF; WBC,URINE 0-2 /HPF
[2023-03-31 10:31] LABS: ALBUMIN 4.3 GM/DL (3.2-4.5); BILIRUBIN,TOTAL 0.4 MG/DL (0.1-1.0); CALCIUM 9.7 MG/DL (8.5-10.1); CREATININE SERUM 1.59 MG/DL (0.60-1.30); TOTAL PROTEIN 7.3 GM/DL (6.4-8.2)
== END ==
LOC: LABNPT 08:09
PROVIDERS: ATTEND Family Medicine
DX: E11.65 Type 2 diabetes mellitus with hyperglycemia (principal)
CPT/HCPCS: 36415; 80053; 80061; 81000; 83036; 84443; 85027

== ENCOUNTER → 2023-06-27 | Outpatient (CLI) | payer MEDICARE, MEDICAID ==
[2023-06-27 09:08] LABS: CREATININE SERUM 1.51 MG/DL (0.60-1.30); POTASSIUM 3.3 MMOL/L (3.6-5.0)
[2023-06-27 09:09] LABS: CALCIUM 9.2 MG/DL (8.5-10.1)
== END ==
LOC: LAB FS 08:37
PROVIDERS: ATTEND Family Medicine
DX: R19.7 Diarrhea, unspecified (principal); E87.6 Hypokalemia
CPT/HCPCS: 36415; 80048

== ENCOUNTER → 2023-06-30 | Outpatient (CLI) | payer MEDICARE, MEDICAID ==
[~2023-06-30] MED LIST changes: -GABA-490 PO; +GABA-491 PO
[2023-06-30 09:53] LABS: CALCIUM 9.4 MG/DL (8.5-10.1); CREATININE SERUM 1.19 MG/DL (0.60-1.30); POTASSIUM 4.2 MMOL/L (3.6-5.0)
== END ==
LOC: LAB FS 09:18
PROVIDERS: ATTEND Nurse Practitioner Family
DX: E87.6 Hypokalemia (principal)
CPT/HCPCS: 36415; 80048

== ENCOUNTER → 2023-08-14 | Outpatient (CLI) | payer MEDICARE, MEDICAID ==
[2023-08-14 08:56] LABS: HEMATOCRIT 40 % (40-54); HEMOGLOBIN 13.2 g/dL (13.3-17.7); MEAN CORPUSCULAR HEMOGLOBIN 31 pg (25-34); MEAN CORPUSCULAR HGB CONC 33 g/dL (32-36); MEAN CORPUSCULAR VOLUME 94 fL (80-99); MEAN PLATELET VOLUME 10.2 fL (9.0-12.2); PLATELET COUNT 229 10^3/uL (130-400)
[2023-08-14 09:17] LABS: CALCIUM 9.9 MG/DL (8.5-10.1); CREATININE SERUM 1.53 MG/DL (0.60-1.30); POTASSIUM 4.4 MMOL/L (3.6-5.0)
== END ==
LOC: LAB 08:03
PROVIDERS: ATTEND Family Medicine
DX: I10 Essential (primary) hypertension (principal); E11.9 Type 2 diabetes mellitus without complications; E55.9 Vitamin D deficiency, unspecified; E53.8 Deficiency of other specified B group vitamins
CPT/HCPCS: 36415; 80048; 82306; 82607; 82746; 83036; 85027